=== PATIENT | female | born 1980 | race African-American/Black ===

== ENCOUNTER 2021-10-04 11:35 | Emergency (ER) | payer MEDICARE, MEDICAID ==
[2021-10-04] MEDS ORDERED: cloNIDine 0.1 MG TAB ONE (13:03)
[2021-10-04 13:32] LABS: #Basophils 0.1 10x3/uL (0.0-0.2); #Eosinphils 0.1 10x3/uL (0.0-0.5); #Monocytes 0.3 10x3/uL (0.0-1.1); #Neutrophils 4.6 10x3/uL (1.5-8.4); %Basophils 0.8 % (0.0-2.0); %Eosinophils 1.6 % (0.0-6.0); %Monocytes 4.3 % (0.0-10.0); Hemoglobin 10.9 g/dL (12.0-15.5); Mean Corpuscular HGB CONC 33.9 g/dL (32.0-36.0); Mean Corpuscular Hemoglobin 31.2 pg (27.0-33.0); Mean Corpuscular Volume 92.3 fl (81.6-98.3); Mean Platelet Volume 10.5 fl (7.4-10.4); Platelet Count 156 10x3/uL (150-450); RBC Distribution Width 12.5 % (11.5-14.5); Red Blood Cell (RBC) Count 3.49 10x6/uL (3.90-5.03)
[2021-10-04 14:11] LABS: Actual Bicarbonate (HCO3v) 24 mEq/L (22-28); Base Excess -0.8 mEq/L (-2.0 to +3.0); Calcium, Ionized (venous) 1.05 mmol/L (1.16-1.32); Chloride (VBG) 103 mmol/L (98-106); Hemoglobin (Hb) 12.7 g/dL (11.7-15.5); Potassium (VBG) 6.48 mmol/L (3.70-5.30); Puncture Site Other Site; RapidComm Collect By CBL; Sodium 132.8 mmol/L (133-146); pH (venous) 7.38 (7.32-7.43)
[2021-10-04 14:13] LABS: Anion Gap 18 mmol/L (10-20); BUN (Urea Nitrogen) 23 mg/dL (7.0-18.7); Calc. Creatinine Clearance 0 mL/min (70-130); Carbon Dioxide 22 mmol/L (22-29); Chloride 102 mmol/L (98-107); Sodium 138 mmol/L (136-145)
[2021-10-04 14:14] LABS: ALT (SGPT) 29 U/L (8-55); AST (SGOT) 30 U/L (5-34); Albumin 4.4 g/dL (3.5-5.0); Alkaline Phosphatase 99 U/L (40-110); Bilirubin, Total 0.2 mg/dL (0.2-1.2); Calcium 9.5 mg/dL (7.8-10.44); Globulin 3.7 g/dL (2.4-3.5); Glucose 162 mg/dL (70-105); Protein, Total 8.1 g/dL (6.0-8.3)
[2021-10-04] MEDS ORDERED: Morphine 4 MG/ML VIAL ONE (14:19)
[2021-10-04 14:20] LABS: Bilirubin Neg (Negative); Blood, Urine Negative (Negative); Clarity Clear (Clear); Glucose, Urine (Dipstick) Normal (Negative); Ketone, Urine Negative (Negative); Leukocyte Negative (Negative); Nitrite Negative (Negative); Protein, Urine (Dipstick) Negative (Neg-Trace); Urobilinogen Normal mg/dL (Less than 2)
[2021-10-04] MEDS ORDERED: Ondansetron PF 4 MG/2 ML Vial ONE (14:20)
[2021-10-04 14:23] LABS: Pregnancy Test - Urine (BHCG) Negative (Negative); Pregu Control Background? CLEAR/WHITE (CLR/WHITE); Pregu Control Bar Appear? YES (CONTROL BAR)
[2021-10-04 14:32] LABS: CKMB 1.6 ng/mL (0-6.6)
[2021-10-04 16:33] LABS: Troponin I 0.053 ng/mL (< 0.028)
== END 2021-10-04 16:15 | disposition home or self-care (01) ==
LOC: CSHERS 11:35
DX: I10 Essential (primary) hypertension (principal); R77.8 Other specified abnormalities of plasma proteins; I25.10 Atherosclerotic heart disease of native coronary artery without angina pectoris; E11.40 Type 2 diabetes mellitus with diabetic neuropathy, unspecified; Z86.718 Personal history of other venous thrombosis and embolism; Z79.84 Long term (current) use of oral hypoglycemic drugs; Z79.4 Long term (current) use of insulin; Z79.899 Other long term (current) drug therapy
CPT/HCPCS: 36415; 71045; 80053; 81003; 81025; 82553; 82805; 83605; 84484; 85025; 93005; 94760; 96374; 96375; J2270; J2405